=== PATIENT | female | born 1990 | race Caucasian/White ===

== ENCOUNTER 2016-05-14 17:36 | Emergency (ER) | payer MEDICAID ==
[~2016-05-14] VITALS: Ht 160 cm; Wt 68.2 kg
[~2016-05-14 17:36] MED LIST: AMOXICILLIN 50500 MG PO; BACTRIM DS 8001 TAB PO; BIRTH CONTROL PILLS; CEPHALEXIN500 M1 PO; LORTAB 5/500 501 TAB PO; NO HOME MEDICATIONS; NORCO 325 MG-51 TAB PO; VENTOLIN0.09 MG IH; birth control pill
[2016-05-14 17:38] VITALS: BP 126/86; PULSE 93; TEMP 98.4
[2016-05-14] MEDS ORDERED: VOLTAREN 75 DR75 MG PO (18:56)
== END 2016-05-14 19:05 | disposition home or self-care (01) ==
LOC: COL.ER 17:36
DX: S50.01XA Contusion of right elbow, initial encounter (principal); R20.2 Paresthesia of skin; W00.0XXA Fall on same level due to ice and snow, initial encounter; Y92.414 Local residential or business street as the place of occurrence of the external cause